=== PATIENT | female | born 1970 | race Caucasian/White ===

== ENCOUNTER 2017-10-28 18:39 | Observation (INO) | payer SELFPAY ==
[~2017-10-28] VITALS: Ht 175.3 cm; Wt 93.2 kg
[~2017-10-28 18:39] MED LIST: Z.0.NO CURRENT MEDS
[2017-10-28 19:11] VITALS: BP 189/100; PULSE 84; RESP 20; TEMP 98.3; O2SAT 99
--- NOTE | 2017-10-28 20:13 | RADRPT ---
EXAM DATE/TIME: 10/28/2017 19:53 [facility] COMPARISON: No previous studies available for comparison. INDICATIONS : Chest pain. MEDICAL HISTORY : None. SURGICAL HISTORY : CABG. ENCOUNTER: Initial ACUITY: 1 day PAIN SCORE: 7/10 LOCATION: Bilateral chest FINDINGS: PA and lateral views of the chest demonstrate the lungs to be symmetrically aerated without evidence of mass, infiltrate or effusion. There is mild peribronchial thickening. Small calcified granulomata are present in both lungs. Previous sternotomy. The cardiomediastinal contours are unremarkable. Os seous structures are intact. CONCLUSION: 1. Mild peribronchial thickening without focal infiltrate. Previous sternotomy. Remote granulomatous disease. Federico Garland MD on October 28, 2017 at 20:07 Board Certified Radiologist. This report was verified electronically.
[2017-10-28 21:52] LABS: AUTOMATED NEUTROPHIL # 4.8 TH/MM3 (1.8-7.7); BASOPHIL # 0.1 TH/MM3 (0-0.2); EOSINOPHIL # 0.1 TH/MM3 (0-0.4); EOSINOPHIL % 1.4 % (0.0-4.0); HEMATOCRIT 43.5 % (35.0-46.0); HEMOGLOBIN 14.5 GM/DL (11.6-15.3); LYMPHOCYTE # 3.3 TH/MM3 (1.0-4.8); MEAN CELL VOLUME 85.6 FL (80.0-100.0); MEAN CORPUSCULAR HEMOGLOBIN 28.6 PG (27.0-34.0); MEAN CORPUSCULAR HGB CONC 33.4 % (32.0-36.0); MEAN PLATELET VOLUME 9.6 FL (7.0-11.0); MONO % 5.5 % (0.0-8.0); MONOCYTE # 0.5 TH/MM3 (0-0.9); NEUT % 55.1 % (16.0-70.0); PLATELET COUNT 239 TH/MM3 (150-450); RED BLOOD COUNT 5.08 MIL/MM3 (4.00-5.30); RED CELL DISTRIBUTION WIDTH 15.3 % (11.6-17.2); WHITE BLOOD COUNT 8.8 TH/MM3 (4.0-11.0)
[2017-10-28 22:08] LABS: BICARBONATE 24.7 MEQ/L (21.0-32.0); BLOOD UREA NITROGEN 8 MG/DL (7-18); CALCIUM 9.2 MG/DL (8.5-10.1); CHLORIDE 109 MEQ/L (98-107); CREATININE 0.71 MG/DL (0.50-1.00); GLOMERULAR FILTRATION RATE 89 ML/MIN (>89); GLUCOSE,RANDOM 96 MG/DL (74-106); MAGNESIUM 2.4 MG/DL (1.5-2.5); SODIUM (NA) 141 MEQ/L (136-145)
--- NOTE | 2017-10-28 22:08 | PD ---
HPI Chief Complaint: Chest Pain Time Seen by Provider: 22:00 Travel History International Travel<30 days: No Contact w/Intl Traveler<30days: No Traveled to known affect area: No History of Present Illness HPI 47-year-old female presents to the emergency department for evaluation of chest pain. Patient has had remittent retrosternal chest pain radiating into the upper extremities for the past several days. Patient has been under enormous stress as she had her 30-year-old son of cardiac arrest October 03 in [facility]. Patient recently traveled back from [place] around October 10. Patient denies any lower extremity pain or swelling. 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 Patient has no known prior history of coronary vessel disease. Patient does have history of hypertension untreated on medications at this time is unaware of dyslipidemia or diabetes. Patient does smoke cigarettes. Patient has very strong family history of coronary artery disease. Patient states she has not been under the care of a physician for some time. Patient does not have a emulsion coater. Surgery was performed at [facility] approximately 1 year ago. Patient's had no recent febrile illness. Patient has not noticed any swelling of the upper extremities or lower extremities or any pain in the upper extremities or lower extremities. Patient states she was seen for same complaint one week ago at [facility] and was prescribed Ativan but does not want to take this medication as it only makes her drowsy and does not resolve her chest pain discomfort. Patient had no associated nausea vomiting diaphoresis near syncope or syncope. Patient has had some mild shortness of breath intermittently. PFSH Past Medical History Narrative Medical Anxiety migraines hypertension atrial myxoma septal defect post repair Anxiety: Yes Heart Rhythm Problems: No Cardiac Catheterization: No Cardiovascular Problems: No Hypertension: No Migraines: Yes Myocardial Infarction: No Ulcer: Yes ?: Not Tubal Ligation: Yes Past Surgical History Cholecystectomy: Yes Other Surgery: Yes (L BREAST LUMPECTOMY; PRE-CANCEROUS) Social History Alcohol Use: No Tobacco Use: Yes (1/2 PK PER DAY) Substance Use: No Allergies-Medications (Allergen,Severity, Reaction): Coded Allergies: azithromycin (Unverified Allergy, Severe, ABD PAIN, 10/28/17) chocolate flavor (Unverified Allergy, Severe, WHITE - HIVES, 10/28/17) codeine (Unverified Allergy, Severe, ITCHING INSIDE OUT, 10/28/17) diphenhydramine (Unverified Allergy, Severe, 10/28/17) sumatriptan (Unverified Allergy, Severe, HEART PROBLEMS, 10/28/17) furosemide (Verified Allergy, Unknown, 10/28/17) Reported Meds & Prescriptions Reported Meds & Active Scripts Active Reported No Current Meds (Miscellaneous Medication) Misc Review of Systems Except as stated in HPI: all other systems reviewed are Neg General / Constitutional: No: Fever, Chills HENT: No: Congestion Cardiovascular: Positive: Chest Pain or Discomfort Respiratory: Positive: Shortness of Breath Gastrointestinal: No: Nausea, Vomiting, Diarrhea, Abdominal Pain Genitourinary: No: Dysuria, Flank Pain Musculoskeletal: No: Myalgias, Arthralgias, Edema Skin: No Rash Neurologic: No: Weakness, Dizziness, Syncope Psychiatric: Positive: Anxiety Hematologic/Lymphatic: No: Lymph Node Enlargement Physical Exam Narrative GENERAL: Well-developed well-nourished female no acute distress or respiratory distress SKIN: Warm and dry. HEAD: Normocephalic. EYES: No scleral icterus. No injection or drainage. NECK: Supple, trachea midline. No JVD or lymphadenopathy. CARDIOVASCULAR: Regular rate and rhythm without murmurs, gallops, or rubs. RESPIRATORY: Breath sounds equal bilaterally. No accessory muscle use. GASTROINTESTINAL: Abdomen soft, non-tender, nondistended. MUSCULOSKELETAL: No cyanosis, or edema. BACK: Nontender without obvious deformity. No CVA tenderness. Data Data Last Documented VS Vital Signs Date Time Temp Pulse Resp B/P (MAP) Pulse Ox O2 Delivery O2 Flow Rate FiO2 10/28/17 22:09 77 16 143/87 (105) 98 Room Air 10/28/17 19:11 98.3 Orders Orders Electrocardiogram (10/28/17 19:14) Basic Metabolic Panel (Bmp) (10/28/17 19:14) Ckmb (Isoenzyme) Profile (10/28/17 19:14) Complete Blood Count With Diff (10/28/17 19:14) Magnesium (Mg) (10/28/17 19:14) Prothrombin Time / Inr (Pt) (10/28/17 19:14) Act Partial Throm Time (Ptt) (10/28/17 19:14) Troponin I (10/28/17 19:14) Chest, Pa & Lat (10/28/17 19:14) Aspirin Chew (Aspirin Chew) (10/28/17 23:00) Ketorolac Inj (Toradol Inj) (10/28/17 23:00) Nicotine 7 Mg Patch.24 Hr (Habitrol 7 M (10/28/17 23:00) D-Dimer (10/28/17 22:49) Admit Order (Ed Use Only) (10/28/17 ) Quality Control Tester / Telemetry JOHN.Q8H (10/28/17 23:53) Diet Heart Healthy (10/29/17 Breakfast) Activity Oob With Assistance (10/28/17 23:53) Notify Dr: Other (10/28/17 23:53) Activity Bed Rest With Brp (10/28/17 23:53) Vital Signs (Adult) Q4H (10/28/17 23:53) Cardiac Rhythm .As Directed (10/28/17 23:53) Notify Dr: Other .PRN (10/28/17 23:53) Notify DrGilda Parameters (10/28/17 23:53) Resp Oxygen Nasal Cannula (10/28/17 ) Ckmb (Isoenzyme) Profile (10/29/17 00:05) Ckmb (Isoenzyme) Profile (10/29/17 03:05) Troponin I (10/29/17 00:05) Troponin I (10/29/17 03:05) Electrocardiogram (10/29/17 00:05) Electrocardiogram (10/29/17 03:05) ^ Obtain (10/28/17 23:53) Sodium Chloride 0.9% Flush (Ns Flush) (10/29/17 00:00) Sodium Chloride 0.9% Flush (Ns Flush) (10/29/17 09:00) Nitroglycerin Sl (Nitrostat Sl) (10/29/17 00:00) Aspirin (Aspirin) (10/29/17 09:00) Quality Control Tester / Telemetry JOHN.Q8H (10/28/17 23:53) Labs Laboratory Tests Test 10/28/17 21:05 White Blood Count 8.8 TH/MM3 Red Blood Count 5.08 MIL/MM3 Hemoglobin 14.5 GM/DL Hematocrit 43.5 % Mean Corpuscular Volume 85.6 FL Mean Corpuscular Hemoglobin 28.6 PG Mean Corpuscular Hemoglobin Concent 33.4 % Red Cell Distribution Width 15.3 % Platelet Count 239 TH/MM3 Mean Platelet Volume 9.6 FL Neutrophils (%) (Auto) 55.1 % Lymphocytes (%) (Auto) 37.0 % Monocytes (%) (Auto) 5.5 % Eosinophils (%) (Auto) 1.4 % Basophils (%) (Auto) 1.0 % Neutrophils # (Auto) 4.8 TH/MM3 Lymphocytes # (Auto) 3.3 TH/MM3 Monocytes # (Auto) 0.5 TH/MM3 Eosinophils # (Auto) 0.1 TH/MM3 Basophils # (Auto) 0.1 TH/MM3 CBC Comment DIFF FINAL Differential Comment Prothrombin Time 9.4 SEC Prothromb Time International Ratio 0.9 RATIO Activated Partial Thromboplast Time 25.2 SEC D-Dimer Quantitative (PE/DVT) 0.35 MG/L FEU Blood Urea Nitrogen 8 MG/DL Creatinine 0.71 MG/DL Random Glucose 96 MG/DL Calcium Level 9.2 MG/DL Magnesium Level 2.4 MG/DL Sodium Level 141 MEQ/L Potassium Level 3.9 MEQ/L Chloride Level 109 MEQ/L Carbon Dioxide Level 24.7 MEQ/L Anion Gap 7 MEQ/L Estimat Glomerular Filtration Rate 89 ML/MIN Total Creatine Kinase 68 U/L Troponin I LESS THAN 0.02 NG/ML MDM Medical Decision Making Medical Screen Exam Complete: Yes Emergency Medical Condition: Yes Medical Record Reviewed: Yes Interpretation(s) EKG sinus rhythm rate [address] elevation nonspecific T-wave inversion septally Last Impressions Chest X-Ray 10/28/171913 Signed Impressions: Service Date/Time: Saturday, October 28, 2017 19:53 - CONCLUSION: 1. Mild peribronchial thickening without focal infiltrate. Previous sternotomy. Remote granulomatous disease. 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
[2017-10-28 22:09] VITALS: BP 143/87; PULSE 77; RESP 16; O2SAT 98
[2017-10-28 22:13] LABS: INTERNATIONAL NORMALIZED RATIO 0.9 RATIO; PROTHROMBIN TIME - PATIENT 9.4 SEC (9.8-11.6)
[2017-10-28 22:21] LABS: TROPONIN I LESS THAN 0.02 NG/ML (0.02-0.05)
[2017-10-28] MEDS ORDERED: ASPIRIN 81 MG CHEW TAB CHEW ONE (23:00)
[2017-10-28] MEDS ORDERED: NICOTINE 7 MG/24 HR PATCH T-DERMAL ONE (23:00)
[2017-10-28] MEDS ORDERED: KETOROLAC TROMETHAMINE 30 MG/ML (IVP) VIAL IV PUSH ONE (23:00)
[2017-10-29] VITALS (7 sets, daily range): BP systolic 126–152; BP diastolic 72–98; PULSE 63–77; RESP 15–18; TEMP 96.3–97.7; O2SAT 97–99
[2017-10-29] MEDS ORDERED: SODIUM CHLORIDE 0.9% FLUSH 10 ML FLUSH IV FLUSH PRN
[2017-10-29 01:44] LABS: TROPONIN I LESS THAN 0.02 NG/ML (0.02-0.05)
[2017-10-29 05:49] LABS: TROPONIN I LESS THAN 0.02 NG/ML (0.02-0.05)
[2017-10-29] MEDS ORDERED: NITROGLYCERIN 0.4 MG SL 25 TABS/BTL SL PRN ×2 (08:00)
[2017-10-29] MEDS ORDERED: ONDANSETRON HCL 4 MG/2 ML VIAL IV PUSH PRN (08:00)
[2017-10-29] MEDS ORDERED: ACETAMINOPHEN 500 MG CPLT PO PRN (08:00)
--- NOTE | 2017-10-29 08:49 | HHI.HP ---
HPI Primary Care Physician No Primary Care Physician Chief Complaint Chest pain History of Present Illness 47 year old female with history of GI ulcers, current smoker, and migraine headaches presents to ER for further evaluation of chest pain. Her 30 year old son October 03 from a massive heart attack. She developed intermittent chest discomfort over the last few days, she related to stress over son's . Location left anterior chest. Characterized as pressure. No radiation. Duration varies from seconds, minutes, to days. No associated symptoms of nausea, vomiting, dyspnea, or diaphorases. Precipitating factors anxiety. No known relieving factors. Denies similar discomfort in the past. Review of Systems General: No fatigue,weakness, fever, chills, or recent illness. Endorses a lot of emotional stress due to son's recent . HEENT: No GUERRA, no vision changes. History of migraines. CV: As stated above. No current chest pain or pressure. RESP: No SOB, cough, wheeze. Current smoker. GI: No nausea, vomiting, or bowel changes. : No dysuria, urgency, frequency EXT: No lower leg edema, no paraesthesias MS: No discomfort or change in ROM NEURO: No difficulty with balance, LOC, motor/sensory deficits PSYCH: Current anxiety and situational depression over recent of 30 year old son. No suicidal ideation. SKIN: No rashes, no concerning lesions Past Family Social History Allergies: Coded Allergies: azithromycin (Unverified Allergy, Severe, ABD PAIN, 10/28/17) chocolate flavor (Unverified Allergy, Severe, WHITE - HIVES, 10/28/17) codeine (Unverified Allergy, Severe, ITCHING INSIDE OUT, 10/28/17) diphenhydramine (Unverified Allergy, Severe, 10/28/17) sumatriptan (Unverified Allergy, Severe, HEART PROBLEMS, 10/28/17) furosemide (Verified Allergy, Unknown, 10/28/17) Past Medical History Migraines, GI ulcers, anxiety Past Surgical History Atrial myoma septal defect repair, cholecystectomy, left breast lumpectomy Reported Medications Reported Meds & Active Scripts Active Reported No Current Meds (Miscellaneous Medication) Misc Active Ordered Medications Current Medications Medications (Trade) Dose Ordered Sig/Gary Route Start Time Stop Time Status Last Admin (NS Flush) 2 ml UNSCH PRN IV FLUSH 10/29/17 00:00 (NS Flush) 2 ml BID IV FLUSH 10/29/17 09:00 (Tylenol) 500 mg Q4H PRN PO 10/29/17 08:00 (Zofran Inj) 4 mg Q6H PRN IV PUSH 10/29/17 08:00 (Nitrostat Sl) 0.4 mg Q5M PRN SL 10/29/17 08:00 (Aspirin) 325 mg DAILY PO 10/29/17 09:00 Family History Positive for early onset cardiovascular disease. Mother first heart attack age 40 and second age 41. Father first heart attack age 38, second heart attack age 44, later followed with CABGx5. Brother age 40 [place]. Social History No known CAD, hypertension, hyperlipidemia, or diabetes. Current smoker 1 pack/day. Denies any alcohol or drug use. Past cardiac testing No recent cardiac testing. Multiple past stress testing. Currently does not have a lab support service tech due to lack of insurance. Physical Exam Vital Signs Vital Signs Date Time Temp Pulse Resp B/P (MAP) Pulse Ox O2 Delivery O2 Flow Rate FiO2 10/29/17 08:10 97.7 72 17 130/75 (93) 99 10/29/17 02:30 65 15 126/72 (90) 98 Room Air 10/28/17 22:09 77 16 143/87 (105) 98 Room Air 10/28/17 19:11 98.3 84 20 189/100 (129) 99 Physical Exam GENERAL: Alert WN, WD, NAD, female HEAD: NC, AT NECK: Supple, no masses, trachea midline CV: RRR, 2/6 murmur, no rub, no gallop, no JVD, S1-S2 no S3-S4. RESP: Diminished lungs throughout bilateral, no crackles, wheeze, rhonchi, symmetrical chest rise, nonlabored, able to speak in full sentences ABD: Soft, NT, ND, no masses, positive bowel tones EXT: Pulses +2x4, no dependent edema MS: Normal tone x4 extremities, nontender, no obvious deformities, full range of motion NEURO: CN II through CN XII grossly intact, motor strength 5/5 PSYCH: A+Ox3, flat affect, appropriate speech, sad mood, tearful during interview, appropriate insight and judgment SKIN: Normal turgor, normal texture Laboratory Laboratory Tests Test 10/28/17 21:05 10/29/17 01:10 10/29/17 04:45 White Blood Count 8.8 Red Blood Count 5.08 Hemoglobin 14.5 Hematocrit 43.5 Mean Corpuscular Volume 85.6 Mean Corpuscular Hemoglobin 28.6 Mean Corpuscular Hemoglobin Concent 33.4 Red Cell Distribution Width 15.3 Platelet Count 239 Mean Platelet Volume 9.6 Neutrophils (%) (Auto) 55.1 Lymphocytes (%) (Auto) 37.0 Monocytes (%) (Auto) 5.5 Eosinophils (%) (Auto) 1.4 Basophils (%) (Auto) 1.0 Neutrophils # (Auto) 4.8 Lymphocytes # (Auto) 3.3 Monocytes # (Auto) 0.5 Eosinophils # (Auto) 0.1 Basophils # (Auto) 0.1 CBC Comment DIFF FINAL Differential Comment Prothrombin Time 9.4 Prothromb Time International Ratio 0.9 Activated Partial Thromboplast Time 25.2 D-Dimer Quantitative (PE/DVT) 0.35 Blood Urea Nitrogen 8 Creatinine 0.71 Random Glucose 96 Calcium Level 9.2 Magnesium Level 2.4 Sodium Level 141 Potassium Level 3.9 Chloride Level 109 Carbon Dioxide Level 24.7 Anion Gap 7 Estimat Glomerular Filtration Rate 89 Total Creatine Kinase 68 53 53 Troponin I LESS THAN 0.02 LESS THAN 0.02 LESS THAN 0.02 Result Diagram: 10/28/17210410/28/172104 Imaging Last 48 hours Impressions Chest X-Ray 10/28/171913 Signed Impressions: Service Date/Time: Saturday, October 28, 2017 19:53 - CONCLUSION: 1. Mild peribronchial thickening without focal infiltrate. Previous sternotomy. Remote granulomatous disease. Federico Garland MD Course EKG NSR, no st t segment changes Caprini VTE Risk Assessment Caprini VTE Risk Assessment: No/Low Risk (score <= 1) Caprini Risk Assessment Model Point Value = 1 Point Value = 2 Point Value = 3 Point Value = 5 Age 41-60 Minor surgery BMI > 25 kg/m2 Swollen legs Varicose veins or History of unexplained or recurrent spontaneous Oral contraceptives or hormone replacement Sepsis (< 1 month) Serious lung disease, including pneumonia (< 1 month) Abnormal pulmonary function Acute myocardial infarction Congestive heart failure (< 1 month) History of inflammatory bowel disease Medical patient at bed rest Age 61-74 Arthroscopic surgery Major open surgery (> 45 min) Laparoscopic surgery (> 45 min) Malignancy Confined to bed (> 72 hours) Immobilizing plaster cast Central venous access Age >= 75 History of VTE Family history of VTE Factor V Leiden Prothrombin [id number] Lupus anticoagulant Anticardiolipin antibodies Elevated serum homocysteine Heparin-induced thrombocytopenia Other congenital or acquired thrombophilia Stroke (< 1 month) Elective arthroplasty Hip, pelvis, or leg fracture Acute spinal cord injury (< 1 month) Prophylaxis Regimen Total Risk Factor Score Risk Level Prophylaxis Regimen 0-1 Low Early ambulation 2 Moderate Order ONE of the following: *Sequential Compression Device (SCD) *Heparin 5000 units SQ BID 3-4 Higher Order ONE of the following medications: *Heparin 5000 units SQ TID *Enoxaparin/Lovenox 40 mg SQ daily (WT < 150 kg, CrCl > 30 mL/min) *Enoxaparin/Lovenox 30 mg SQ daily (WT < 150 kg, CrCl > 10-29 mL/min) *Enoxaparin/Lovenox 30 mg SQ BID (WT < 150 kg, CrCl > 30 mL/min) AND/OR *Sequential Compression Device (SCD) 5 or more Highest Order ONE of the following medications: *Heparin 5000 units SQ TID (Preferred with Epidurals) *Enoxaparin/Lovenox 40 mg SQ daily (WT < 150 kg, CrCl > 30 mL/min) *Enoxaparin/Lovenox 30 mg SQ daily (WT < 150 kg, CrCl > 10-29 mL/min) *Enoxaparin/Lovenox 30 mg SQ BID (WT < 150 kg, CrCl > 30 mL/min) AND *Sequential Compression Device (SCD) Assessment and Plan Assessment and Plan #1 Chest pain-admitted to chest pain center. Ruled out with 3 sets of EKGs, cardiac enzymes, and monitored overnight. Seen and evaluated by Dr. Comfort Crenshaw. Proceed with nuclear treadmill cardiac testing today. If unremarkable, plans to discharge home with follow up with a PCP. Discussed [facility] for follow up. #2 Tobacco use-urgent stress importance of tobacco cessation. Instructed to quit smoking. Ama Ellington Oct 29, 2017 08:49
[2017-10-29] MEDS ORDERED: ASPIRIN 325 MG TAB PO SCH ×2 (09:00)
[2017-10-29] MEDS ORDERED: SODIUM CHLORIDE 0.9% FLUSH 10 ML FLUSH IV FLUSH SCH (09:00)
--- NOTE | 2017-10-29 14:59 | RADRPT ---
EXAM DATE/TIME: 10/29/2017 11:35 [facility] COMPARISON: No previous studies available for comparison. INDICATIONS : Retrosternal chest pain radiating to the upper extremities. Angina DOSE: 25.9 mCi Tc99m Myoview at stress 8.8 mCi Tc99m Myoview at rest REST HEART RATE: 74 BPM TARGET HEART RATE: 149 BPM MAX HEART RATE: 153 BPM REST BLOOD PRESSURE: 156/80 mmHg MAX BLOOD PRESSURE: 158/82 mmHg EJECTION FRACTION: 66% MEDICAL HISTORY : Hypertension. Smoker. Atrial myxoma. SURGICAL HISTORY : Tubal ligation. Cholecystectomy. Atrial myxoma removal. Septal defect repair. ENCOUNTER: Initial ACUITY: 4 - 6 days PAIN SCALE: 7/10 LOCATION: Retrosternal chest TECHNIQUE: The patient underwent upright treadmill exercise in the chest pain center. Continuous ECG tracing wa s monitored during stress. Gated SPECT imaging was performed after stress, and conventional SPECT im aging was performed at rest. The examination was performed on a SPECT/CT scanner, both attenuation-c orrected and non-corrected datasets were reviewed. FINDINGS: DISTRIBUTION: The maximum perfused segment at stress is in the anterior and lateral ely. PERFUSION STUDY: The pattern of perfusion at stress is within normal limits. GATED STUDY: There is intact wall motion and thickening without hypokinetic or dyskinetic segments. CONCLUSION: Within normal limits. No stress-induced ischemia. Normal wall motion. RISK CATEGORY: Low Manoj Brown MD on October 29, 2017 at 14:56 Board Certified Radiologist. This report was verified electronically.
--- NOTE | 2017-10-29 15:07 | HHI.DCPOC ---
Discharge Care Plan Diagnosis: (1) Tobacco abuse (2) Situational stress (3) Chest pain Goals to Promote Your Health * To prevent worsening of your condition and complications * To maintain your health at the optimal level Directions to Meet Your Goals Take your medications as prescribed Follow your dietary instruction Follow activity as directed Keep your appointments as scheduled Take your immunizations and boosters as scheduled If your symptoms worsen call your PCP, if no PCP go to Urgent Care Center or Emergency Room Smoking is Dangerous to Your Health. Avoid second hand smoke Call the 24-hour hour crisis hotline for domestic abuse at Ama Ellington Oct 29, 2017 15:07
[2017-10-29] MEDS ORDERED: IBUPROFEN 600 MG TAB PO ONE (15:30)
[2017-10-29] MEDS ORDERED: ALPRAZolam 0.25 MG TAB PO ONE (15:30)
--- NOTE | 2017-10-29 17:32 | TR ---
Date Performed: 10/29/2017 Time Performed: 13:35:48 DOCTOR: Comfort Crenshaw DRUG LIST: CLINICAL HISTORY: REASON FOR TEST: REASON FOR ENDING: OBSERVATION: CONCLUSION: Ta protocol completed. Stopped sec to reaching target heart rate and leg fatigue. Maximum KQ=012 Target HR Achieved=87.0% Maximum RQ=561/82 Total Exercise Time=10:21. No reprod chest discomfort. No ectopy. No st t segment changes to sugg ischemia. Great exercise tolerance. Normal b p response. Recovery quick and unremarkable. Nuclear images pending. COMMENTS:
--- NOTE | 2017-10-29 17:35 | EKG ---
Date Performed: 10/29/2017 Time Performed: 05:07:38 PTAGE: 47 years EKG: SINUS BRADYCARDIA WITH SINUS ARRHYTHMIA BORDERLINE ECG Since PREVIOUS TRACING , no significant change noted PREVIOUS TRACIN10/29/2017 01.12 DOCTOR: Comfort Crenshaw Interpretating Date/Time 10/29/2017 17:34:19
--- NOTE | 2017-10-29 17:36 | EKG ---
Date Performed: 10/29/2017 Time Performed: 01:12:27 PTAGE: 47 years EKG: SINUS BRADYCARDIA WITH SINUS ARRHYTHMIA BORDERLINE ECG Since PREVIOUS TRACING , no significant change noted PREVIOUS TRACIN10/28/2017 21.09 DOCTOR: Comfort Crenshaw Interpretating Date/Time 10/29/2017 17:35:01
--- NOTE | 2017-10-29 17:37 | EKG ---
Date Performed: 10/28/2017 Time Performed: 21:09:50 PTAGE: 47 years EKG: SINUS BRADYCARDIA WITH SHORT WA INTERVAL BORDERLINE ECG Since PREVIOUS TRACING , no significant change noted PREVIOUS TRACIN07/07/2007 17.19 DOCTOR: Comfort Crenshaw Interpretating Date/Time 10/29/2017 17:35:41
== END 2017-10-29 16:43 | disposition home or self-care (01) ==
LOC: NED 18:39 → NEDA 23:57 → NEPFCDU 10-29 10:00
PROVIDERS: ADMIT Internal Medicine Cardiovascular Disease; ATTEND Internal Medicine Cardiovascular Disease
DX: R07.89 Other chest pain (principal); R07.2 Precordial pain; F17.200 Nicotine dependence, unspecified, uncomplicated; I10 Essential (primary) hypertension; Z82.49 Family history of ischemic heart disease and other diseases of the circulatory system; F41.9 Anxiety disorder, unspecified; R06.02 Shortness of breath; G43.909 Migraine, unspecified, not intractable, without status migrainosus; Z87.11 Personal history of peptic ulcer disease; Z98.890 Other specified postprocedural states
CPT/HCPCS: 71046; 78452; 80048; 82550; 83735; 84484; 85025; 85379; 85610; 85730; 93005; 93017; 96374; 99285; A9502; G0378; J1885

== ENCOUNTER 2018-02-12 09:57 | Observation (INO) ==
--- NOTE | 2018-02-12 11:13 | XR ---
EXAM DATE: 02/12/2018 11:01 AM EDT AGE/SEX: 48 years / Female INDICATIONS: . Chest and upper back pain. CLINICAL DATA: This is the patient's initial encounter. Patient reports that signs and symptoms have been present for 3 days and indicates a pain score of 7/10. MEDICAL/SURGICAL HISTORY: . Pneumonia a few months ago, smokes . surgery for tumor in heart an d hole from repaired [place] [facility] [place]. . FINDINGS: PA and lateral views of the chest demonstrate the lungs to be symmetrically aerated without evidence of mass, infiltrate or effusion. There are some small calcified granulomas bilaterally. No significan t changes compared to the prior study. The cardiomediastinal contours are unremarkable and stable. Th ere is evidence of previous cardiothoracic surgery.. Osseous structures are intact. CONCLUSION: Unremarkable and stable examination of the chest compared to the prior study. Electronically signed by: Noah Chiang MD 02/12/2018 11:12 AM EDT
[2018-02-12 11:43] LABS: Baso # (Auto) 0.1 th/mm3 (0.0-0.2); Baso % (Auto) 1.2 % (0.0-2.0); Eos # (Auto) 0.1 th/mm3 (0.0-0.4); Eos % (Auto) 1.7 % (0.0-4.0); Hemoglobin 14.1 gm/dL (11.6-15.3); Mean Corpuscular HGB Conc 34.4 % (32.0-36.0); Mean Corpuscular Hemoglobin 29.3 pg (27.0-34.0); Mean Corpuscular Volume 85.2 fL (80.0-100.0); Mean Platelet Volume 9.7 fL (7.0-11.0); Mono # (Auto) 0.6 th/mm3 (0.0-0.9); Mono % (Auto) 6.9 % (0.0-8.0); Neut # (Auto) 4.3 th/mm3 (1.8-7.7); Neut % (Auto) 53.2 % (16.0-70.0); Platelet Count 211 th/mm3 (150-450); Red Blood Count 4.81 mil/mm3 (4.00-5.30); Red Cell Distribution Width 15.5 % (11.6-17.2)
[2018-02-12 11:51] LABS: Activated Partial Thrombo Time 23.5 sec (24.3-30.1); INR 0.9 Ratio; Prothrombin Time 9.2 sec (9.8-11.6)
--- NOTE | 2018-02-12 11:59 | ED ---
HPI General Chief Complaint: Chest Pain Stated Complaint: Chest pain / anxiety Time Seen by Provider: 02/12/18 11:40 Source: patient Mode of arrival: ambulatory Limitations: no limitations History of Present Illness HPI narrative: Patient comes in complaining of substernal chest pressure, radiating to shoulders, associated with diaphoresis and nausea and fatigue. Patient smokes a half a pack a day of cigarettes. The patient took some aspirin and Xanax prior to coming, and there was no resolution of her chest pain. No local primary care physician Past medical history includes migraines, atrial myxoma surgery at [facility] through open heart surgery in 2016 along with a septal patch, and a TIA back in 2016. MD complaint: chest pain Complete Quality Measures for STEMI Alert Patients STEMI Alert: No Duration: constant Onset: during rest Pain location: substernal Severity scale (1-10): 6 Quality: tightness Relieving factors: nothing Exacerbating factors: nothing Associated symptoms: nausea and diaphoresis Treatments prior to arrival chest pain: aspirin and other Related Data On Oral Contraceptives: No Allergies Allergy/AdvReac Type Severity Reaction Status Date / Time azithromycin Allergy Severe ABD PAIN Unverified 10/28/17 22:12 chocolate flavor Allergy Severe WHITE - Unverified 10/28/17 22:12 HIVES codeine Allergy Severe ITCHING Unverified 10/28/17 22:12 INSIDE OUT diphenhydramine Allergy Severe Unverified 10/28/17 22:12 sumatriptan Allergy Severe HEART Unverified 10/28/17 22:12 PROBLEMS furosemide Allergy Unknown Verified 10/28/17 22:12 Review of Systems Except as stated in HPI: all other systems reviewed are negative PMFSH History History Provided By: Patient Medical History Medical History Atrial myxoma (Acute) PTSD (post-traumatic stress disorder) (Acute) Pneumonia (Acute) TIA (transient ischemic attack) (Acute) Surgical History Surgical History S/P patch closure of atrial septal defect (Acute) Social History Social History Substance History: Active Abuse Second Hand Smoke Exposure: Yes Smoking Status: Current every day smoker Tobacco Type: Cigarettes How Often Do You Have a Drink Containing Alcohol: Monthly or less Recent Travel in [facility] within the Last 8 Weeks: No Recent Out of Country Travel within the Last 8 Weeks: No Exam Narrative Exam Narrative: GENERAL: middle-aged female SKIN: Focused skin assessment warm/dry. HEAD: Atraumatic. Normocephalic. EYES: Pupils equal and round. No scleral icterus. No injection or drainage. ENT: No nasal bleeding or discharge. Mucous membranes pink and moist. NECK: Trachea midline. No JVD. CARDIOVASCULAR: Regular rate and rhythm. No murmur appreciated. RESPIRATORY: No accessory muscle use. Clear to auscultation. Breath sounds equal bilaterally. GASTROINTESTINAL: Abdomen soft, non-tender, nondistended. Hepatic and splenic margins not palpable. MUSCULOSKELETAL: No obvious deformities. No clubbing. No cyanosis. No edema. NEUROLOGICAL: Awake and alert. No obvious cranial nerve deficits. Motor grossly within normal limits. Normal speech. PSYCHIATRIC: Appropriate mood and affect; insight and judgment normal. Course Initial Documented Vital Signs Temperature 98.4 F 02/12/18 10:07 Pulse Rate 74 02/12/18 10:07 Respiratory Rate 20 02/12/18 10:07 Blood Pressure 134/67 02/12/18 10:07 Pulse Oximetry 96 02/12/18 10:07 Last Documented Vital Signs Temperature 98.4 F 02/12/18 10:07 Pulse Rate 67 02/12/18 12:03 Respiratory Rate 17 02/12/18 12:03 Blood Pressure 137/82 02/12/18 12:03 Pulse Oximetry 98 02/12/18 12:03 Medical Decision Making [facility] Narrative Medical decision making narrative: CBC shows no evidence of any leukocytosis, anemia, her left shift Coagulation profile is within normal limits Elect lites are within normal limits, first set of troponin negative Chest x-ray shows unremarkable and stable examination of the chest compared to prior study per radiology report Differential Diagnosis Differential Diagnosis: STEMI versus non-STEMI versus pulmonary embolus Lab Data Lab results reviewed: Yes I reviewed the patient's lab results. Result diagrams: 02/12/18 11:05 02/12/18 11:05 Lab Results 02/12/18 02/12/18 02/12/18 Range/Units 11:05 11:05 11:05 WBC 8.0 (4.0-11.0) th/mm3 RBC 4.81 (4.00-5.30) mil/mm3 Hgb 14.1 (11.6-15.3) gm/dL Hct 41.0 (35.0-46.0) % MCV 85.2 (80.0-100.0) fL MCH 29.3 (27.0-34.0) pg MCHC 34.4 (32.0-36.0) % RDW 15.5 (11.6-17.2) % Plt Count 211 (150-450) th/mm3 MPV 9.7 (7.0-11.0) fL Neut % (Auto) 53.2 (16.0-70.0) % Lymph % (Auto) 37.0 (9.0-44.0) % Weld % (Auto) 6.9 (0.0-8.0) % Eos % (Auto) 1.7 (0.0-4.0) % Baso % (Auto) 1.2 (0.0-2.0) % Neut # (Auto) 4.3 (1.8-7.7) th/mm3 Lymph # (Auto) 3.0 (1.0-4.8) th/mm3 Weld # (Auto) 0.6 (0.0-0.9) th/mm3 Eos # (Auto) 0.1 (0.0-0.4) th/mm3 Baso # (Auto) 0.1 (0.0-0.2) th/mm3 WBC Differential . Differential Comment Auto diff final PT 9.2 L (9.8-11.6) sec INR 0.9 Ratio APTT 23.5 L (24.3-30.1) sec Sodium 141 (136-145) meq/L Potassium 3.8 (3.5-5.1) meq/L Chloride 107 (98-107) meq/L Carbon Dioxide 24.4 (21.0-32.0) meq/L Anion Gap 10 (5-15) meq/L BUN 12 (7-18) mg/dL Creatinine 0.77 (0.50-1.00) mg/dL Estimated GFR 81 L (>89) mL/min Random Glucose 97 (74-106) mg/dL Calcium 9.5 (8.5-10.1) mg/dL Troponin I Less than 0.02 L (0.02-0.05) ng/mL Imaging Data Radiologist's impression: Chest X-Ray 02/12/18 10:26 CONCLUSION: Unremarkable and stable examination of the chest compared to the prior study. ECG Data EKG Prior to Arrival: No Attestation: I personally reviewed and interpreted this ECG as follows: Prior ECG tracings: not available for review Interpretation: Normal sinus rhythm with short DC interval, inverted T waves on V1 through V3, no ST elevation LA pattern Discharge Plan Discharge Disposition Patient Disposition: 30 Still Patient Discharge Condition Condition: Stable Discharge Details Diagnosis: Chest pain, rule out acute myocardial infarction Physicians Team ED Provider: Josué Parekh Primary Care Provider: Primary Care Mariam Bal Status ED Status: With Doctor
--- NOTE | 2018-02-12 12:06 | ECG ---
Date Performed: 02/12/2018 Time Performed: 10:27:28 PTAGE: 48 years EKG: Sinus rhythm WITH SHORT MS INTERVAL BORDERLINE LEFT AXIS DEVIATION MODERATE T-WAVE ABNORMALITY, CONSIDER ANTERIOR ISCHEMIA ABNORMAL ECG PREVIOUS TRACING : 10/29/2017 05.07 DOCTOR: Gigi Maher Interpretating Date/Time 02/12/2018 12:06:05
[2018-02-12 12:10] LABS: Anion Gap 10 meq/L (5-15); Blood Urea Nitrogen 12 mg/dL (7-18); Calcium 9.5 mg/dL (8.5-10.1); Carbon Dioxide 24.4 meq/L (21.0-32.0); Chloride 107 meq/L (98-107); Glomerular Filtration Rate 81 mL/min (>89); Glucose,Random 97 mg/dL (74-106); Potassium 3.8 meq/L (3.5-5.1); Sodium 141 meq/L (136-145)
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
[2018-02-12] MEDS ORDERED: Aspirin 325 MG Tablet PO ONE (14:49)
[2018-02-12] MEDS: ALPRAZolam 0.25 MG Tablet PO PRN (17:25)
[2018-02-12] MEDS ORDERED: Morphine Inj 4 MG/ML Vial IV.PUSH PRN (17:41)
[2018-02-12] MEDS ORDERED: Morphine Sulfate Inj 2 MG/ML Vial IV.PUSH PRN (17:41)
[2018-02-12] MEDS ORDERED: Naloxone Inj 0.4 MG/ML Vial IV.PUSH PRN (17:41)
[2018-02-12] MEDS ORDERED: Heparin - SQ 10,000 UNITS/ML Vial SQ SCH (20:00)
[2018-02-12 23:12] LABS: Creatine Kinase 42 U/L (26-192)
[2018-02-12 23:16] LABS: Chol/HDL Ratio 4.54 Ratio; HDL Cholesterol 42.2 mg/dL (40.0-60.0); Thyroid Stimulating Hormone 0.742 uIU/mL (0.358-3.740); Total Protein 6.4 g/dL (6.4-8.2)
[2018-02-13] MEDS: ALPRAZolam 0.25 MG Tablet PO PRN (05:05)
[2018-02-13] MEDS ORDERED: Acetaminophen 325 MG Tablet PO PRN (06:38)
[2018-02-13 07:32] LABS: Baso % (Auto) 0.4 % (0.0-2.0); Eos # (Auto) 0.2 th/mm3 (0.0-0.4); Eos % (Auto) 2.5 % (0.0-4.0); Hematocrit 39.5 % (35.0-46.0); Hemoglobin 13.3 gm/dL (11.6-15.3); Lymph # (Auto) 2.4 th/mm3 (1.0-4.8); Lymph % (Auto) 38.6 % (9.0-44.0); Mean Corpuscular HGB Conc 33.7 % (32.0-36.0); Mean Corpuscular Hemoglobin 28.8 pg (27.0-34.0); Mean Corpuscular Volume 85.6 fL (80.0-100.0); Mean Platelet Volume 9.9 fL (7.0-11.0); Mono # (Auto) 0.5 th/mm3 (0.0-0.9); Mono % (Auto) 7.8 % (0.0-8.0); Neut # (Auto) 3.1 th/mm3 (1.8-7.7); Neut % (Auto) 50.7 % (16.0-70.0); Platelet Count 196 th/mm3 (150-450); Red Blood Count 4.61 mil/mm3 (4.00-5.30); Red Cell Distribution Width 15.2 % (11.6-17.2); White Blood Count 6.2 th/mm3 (4.0-11.0)
[2018-02-13 07:50] LABS: Anion Gap 10 meq/L (5-15); Blood Urea Nitrogen 10 mg/dL (7-18); Calcium 9.3 mg/dL (8.5-10.1); Chloride 108 meq/L (98-107); Glomerular Filtration Rate 87 mL/min (>89); Glucose,Random 89 mg/dL (74-106); Sodium 141 meq/L (136-145)
[2018-02-13 08:03] LABS: Creatine Kinase 42 U/L (26-192)
--- NOTE | 2018-02-13 08:18 | P.PNADD ---
Addendum to Inpatient Note Reason for Addendum: Additional Documentation Additional information: AMA NOTE Patient Britney Burks has decided to leave the hospital against medical advice. This patient has the capacity to refuse care. She left before we had the opportunity to discuss her condition/risks of leaving and plan. Patient may return to our team for care, if she decides to return.
--- NOTE | 2018-02-13 19:18 | ECG ---
Date Performed: 02/13/2018 Time Performed: 03:17:12 PTAGE: 48 years EKG: SINUS BRADYCARDIA BORDERLINE ECG PREVIOUS TRACING 02/12/18 @ 21.34.30 Since the previous tracing, no significant change noted DOCTOR: Jose Chavarria Interpretating Date/Time 02/13/2018 19:16:52
--- NOTE | 2018-02-13 19:24 | ECG ---
Date Performed: 02/12/2018 Time Performed: 21:34:30 PTAGE: 48 years EKG: SINUS BRADYCARDIA BORDERLINE ECG PREVIOUS TRACING : 02/12/[address]-T wave changes improved since prior EKG DOCTOR: Jose Chavarria Interpretating Date/Time 02/13/2018 19:22:28
== END 2018-02-13 09:24 | disposition left against medical advice (07) ==
LOC: NEDA 09:57 → NEPE 09:57 → NEPGCP 09:57 → NEDH 16:07 → NEPGCP 16:17
PROVIDERS: ADMIT Family Medicine; ATTEND Family Medicine